=== PATIENT | male | born 1970 | race African-American/Black ===

== ENCOUNTER 2018-01-07 05:26 | Day surgery (SDC) | payer BC ==
[~2018-01-07] VITALS: Ht 175.3 cm; Wt 81.6 kg
--- NOTE | ~2018-01-07 | OP ---
PATIENT NAME: JYOTI BELLE MEDICAL RECORD: [id number] :72 LOCATION:[facility] ADMISSION DATE: SURGEON: MEHRDAD JONES MD DATE OF OPERATION: 01/07/2018 REFERRED BY: Dr. Aicha Mcintyre. PREOPERATIVE DIAGNOSIS: Chronic kidney disease, IV. POSTOPERATIVE DIAGNOSIS: Chronic kidney disease, IV. OPERATION PERFORMED: Creation of a left arm AV fistula, Thania type brachiocephalic. SURGEON: Mehrdad Jones MD ANESTHESIA: Regional block and MAC per BRIM FLEXER. PREOPERATIVE NOTE: This 47-year-old -Japanese male with chronic renal insufficiency is anticipated to require dialysis within the next year and is brought to the operating at this time for creation of a fistula in his left arm. DESCRIPTION OF PROCEDURE: Under anesthesia, the patient was prepped and draped in sterile manner and I examined him with Duplex ultrasound, first applying nitroglycerin ointment to the intact skin of the arm and forearm and using a Marta drain as a proximal venous tourniquet. The patient did not have a satisfactory cephalic vein at the wrist, but did have an excellent median cubital and cephalic vein at the antecubital space and in the upper arm. The basilic vein was large in the arm above the elbow and also in the forearm, although it would have required extensive mobilization for creation of a translocated basilic fistula in the forearm. I elected to go ahead with a brachiocephalic. A transverse antecubital incision was made and the median cubital vein dissected from the surrounding structures, treated with topical papaverine and ligated distally and flushed with heparinized saline and hydrostatically distended and dilated. It was shortened and beveled and kept occluded with an atraumatic vascular clamp proximally. I exposed the brachial artery and controlled it proximally and distally with Silastic loops and a few small branches were controlled temporarily with small Hemoclips. The artery was opened and flushed proximally and distally with heparinized saline and an end-to-side, end of vein to side of artery, anastomosis then performed with running 7-0 Prolene and when completed, the suture line was hemostatic and upon release of the loops, excellent flow was established in the new fistula. The patient had good maintenance of pulsatile flow in the brachial artery distal to the anastomosis, and in the radial artery at the wrist as well. The cephalic vein in the upper arm stood up and pulsated medially up to the shoulder. The patient's wound was irrigated with Ancef and gentamicin solution. A small amount of fibrillar hemostatic material was left on the anastomosis or actually just under it. The wound was closed with interrupted inverted 3-0 Vicryl and skin closure completed with running intracuticular 4-0 Monocryl and Dermabond glue. The incision was dressed with Maxorb Ag, Tegaderm, and Cavilon skin prep and the patient awakened and taken to the recovery room. OPERATIVE REPORT [id number] JYOTI BELLE He will be discharged to home today from the hospital and an appointment scheduled for him to see me in my office in about 2 weeks. He is to continue all of his same medications and diet and resume activities as tolerated. He may shower and wash over the waterproof plastic dressing as desired and I will plan to remove the dressing when he comes to see me in 2 weeks if it is not already come off. He is given a prescription for 10 tablets of hydrocodone 5 mg with acetaminophen 325 mg. He can take 1 tablet every 4 hours as needed p.r.n. for pain, no refills of course. TRANSINT:[id number] Voice Confirmation ID: [id number] DOCUMENT ID: [id number] MEHRDAD JONES MD at 2011 CC: AICHA MCINTYRE MD [id number] DICTATION DATE: 01/07/18 135 [employer] DIRECTIONAL SURVEYOR: 01/07/18 1419 [facility] 01/07/18 [id number] [place] [address]
[2018-01-07 06:07] LABS: INR 1.07 (0.85-1.17); PROTIME 13.5 SECONDS (11.6-15.0)
[2018-01-07 06:08] LABS: APTT 29.8 SECONDS (22.8-39.4)
[2018-01-07 06:11] LABS: BASOPHILS 0.5 % (0-2); EOSINOPHILS 7.5 % (0-7); HEMATOCRIT 29.6 % (42.0-54.0); HEMOGLOBIN 9.8 g/dL (13.5-17.5); IMMATURE GRANULOCYTES 0.2 % (0-5); LYMPHOCYTES 25.1 % (15-50); MCH 29.3 pg (26.0-34.0); MCHC 33.1 g/dL (31.0-37.0); MCV 88.4 fL (80.0-100.0); MEAN PLATELET VOLUME 9.9 fL (7.4-10.4); MONOCYTES 9.5 % (2-11); NEUTROPHILS 57.2 % (40-80); PLATELET COUNT 378 10x3/uL (130-400); RBC 3.35 10x6/uL (4.20-6.10); RDW 15.3 % (11.5-14.5); WBC 8.9 10x3/uL (4.8-10.8)
[2018-01-07 06:21] LABS: CALCIUM 8.7 mg/dL (8.5-10.1); CARBON DIOXIDE 26.2 mmol/L (21.0-32.0); CREATININE - SERUM 6.3 mg/dL (0.6-1.3); POTASSIUM - SERUM 3.2 mmol/L (3.5-5.1)
[2018-01-07] MEDS ORDERED: POT CHLORIDE TAB 8ME (08:28)
[2018-01-07] MEDS ORDERED: HYDRALAZINE HC100 MG PO (08:30)
[2018-01-07] MEDS ORDERED: NORMODYNE / TR200 MG PO (08:30)
[2018-01-07] MEDS ORDERED: ZYLOPRIM100 MG PO (08:31)
[2018-01-07] MEDS ORDERED: ATORVASTATIN TAB 10M (08:32)
[2018-01-07] MEDS ORDERED: PROAIR HFA8.5 GM INH (08:33)
[2018-01-07] MEDS ORDERED: CARDIZEM CD360 MG PO (08:33)
[2018-01-07 08:50] VITALS: Ht 175.3 cm; Wt 81.6 kg
[2018-01-07] MEDS ORDERED: HYDROCODON-ACE1 EAC7 PO (13:49)
== END 2018-01-07 15:30 | disposition home or self-care (01) ==
LOC: D.OPS 05:26 → D.PAN 08:00 → D.OPS 15:30
PROVIDERS: Surgery
DX: N18.4 Chronic kidney disease, stage 4 (severe) (principal); Z01.812 Encounter for preprocedural laboratory examination

== ENCOUNTER 2020-01-23 08:17 | Day surgery (SDC) | payer MEDICARE ==
[~2020-01-23] VITALS: Ht 175.3 cm; Wt 86.4 kg
--- NOTE | ~2020-01-23 | OP ---
PATIENT NAME: JYOTI HE MEDICAL RECORD: [id number] :71 LOCATION:[facility] ADMISSION DATE: SURGEON: MEHRDAD JONES MD DATE OF OPERATION: 01/23/2020 REFERRING PHYSICIAN: Aicha Mcintyre MD PREOPERATIVE DIAGNOSES: End-stage renal disease, dependence on hemodialysis and severely stenotic left brachiocephalic arteriovenous fistula with severe stricturing of the cephalic arch. POSTOPERATIVE DIAGNOSES: End-stage renal disease, dependence on hemodialysis and severely stenotic left brachiocephalic arteriovenous fistula with severe stricturing of the cephalic arch. OPERATION PERFORMED: Ultrasound-guided access and fistulogram, then angioplasty of the proximal cephalic vein and cephalic arch with an inadequate result followed then by insertion of an 8-mm diameter x 15 cm Viabahn stent in the cephalic arch. SURGEON: Mehrdad Jones MD ANESTHESIA: General with LMA per FLIGHT SURGEON. PREOPERATIVE NOTE: Mr. He is a 49-year-old -[place] male patient from [place] with end-stage renal disease, on chronic hemodialysis with a left brachiocephalic arteriovenous fistula. 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 He was referred to me with the thought or consideration that a flow reducing procedures such as a Johnson banding by lowering shear stress to prevent rapid recurrence of his proximal cephalic stenoses. The patient was brought to the operating room today with the intention of performing first a fistulogram and treating any significant proximal venous outflow obstruction and then an open Johnson banding to reduce flow in the fistula. DESCRIPTION OF PROCEDURE: Under general anesthesia with LMA per FLIGHT SURGEON, the patient in supine position was prepped and draped in sterile manner. 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 The arterial anastomosis was patent with a visible suture material and/or calcifications and no anastomotic stenosis apparently by ultrasound. I used ultrasound to identify the juxta-anastomotic fistula segment proximal to the arterial anastomosis, and with real time ultrasound guidance, cannulated the vein there with micropuncture technique. The vein at that point was fully compressible and contained no thrombus, was about 8-mm in diameter. Images were obtained in realtime and documented on paper, a printout to be included in the patient's permanent record. A 7-Omani introducer was inserted and a guidewire advanced proximally. It was difficult to advance the guidewire through the aneurysms as the course was so tortuous. I eventually used a glide catheter over a Roadrunner wire and went past the areas of most severe tortuosity, I replaced my 7-Omani sheath with an 8-Omani 25 cm long working sheath. Contrast injections revealed very slow flow in the fistula with outflow via at least one very large collateral and very poor OPERATIVE REPORT [id number] JYOTI HE flow in the proximal cephalic vein and apparent numerous stenoses or beading type of sclerotic process in the cephalic arch itself. I was able to pass the guidewire proximal and into the inferior vena cava and then I used an 8-mm angioplasty balloon to dilate the cephalic arch and proximal cephalic vein and it was necessary then to use additionally a Conquest 40 high pressure 8-mm diameter balloon to dilate the areas of the most severe stricturing. Repeat contrast injections revealed improvement, but still an extremely irregular cephalic arch and very unsatisfactory with more than 50% or 60-80% stenoses in multiple areas. I then stented the cephalic arch with an 8-mm diameter x 15 cm Viabahn stent, which was then fully deployed with the use of the 8-mm angioplasty balloon. Repeated contrast injections revealed much improved flow in the fistula and through the proximal cephalic vein with less collateral flow. The stent in the cephalic arch extends further into the subclavian vein, then I had attempted to keep it, but it does not at this time cause any significant obstruction and there was so much improved flow generally in all that area. The hardware and sheath were removed and hemostasis obtained at the puncture site with a [id number] 4-0 Prolene. A sterile dressing of Ultrafoam and Tegaderm with Cavilon skin prep was applied. At that point, the patient was awakened and taken to the recovery room. Blood loss during the operation was insignificant and unreplaced. Sponges, instruments, and needles were accounted for and no drain was used. We will contact the patient with instructions as to when to return. I do not think I need to see him back in the office necessarily, but I would like to see him back at [facility] within the next month. I do not think that a banding procedure would have been appropriate today because of the slow flow the patient had in his fistula, I think it was actually just about to thrombose. The fistula may require some additional stenting to maintain patency or its possible we will need to plan for an entirely new access fairly soon. TRANSINT:[id number] Voice Confirmation ID: [id number] DOCUMENT ID: [id number] cc: Dialysis in [place] MEHRDAD JONES MD CC: AICHA MCINTYRE MD and AICHA DEE MD [id number] DICTATION DATE: 01/23/20 1324 [employer] C[employer] HAND: 01/23/20 1845 [facility] 01/23/20 [facility] [address] [place] [address]
[~2020-01-23 08:17] MED LIST: ATORVASTATIN TAB 10M; CARDIZEM CD360 MG PO; HYDRALAZINE HC100 MG PO; HYDROCODON-ACE1 EAC7 PO; NORMODYNE / TR200 MG PO; POT CHLORIDE TAB 8ME; PROAIR HFA8.5 GM INH; ZYLOPRIM100 MG PO
[2020-01-23 08:56] LABS: ANION GAP 15.1 mmol/L (8-16); CALCIUM 8.7 mg/dL (8.5-10.1); CARBON DIOXIDE 28.3 mmol/L (21.0-32.0); CREATININE - SERUM 9.2 mg/dL (0.6-1.3); POTASSIUM - SERUM 4.4 mmol/L (3.5-5.1)
[2020-01-23] MEDS ORDERED: VERELAN360 MG PO (09:06)
[2020-01-23] MEDS ORDERED: FLOMAX0.4 MG PO (09:12)
[2020-01-23] MEDS ORDERED: FUROSEMIDE40 MG PO (09:13)
[2020-01-23] MEDS ORDERED: ROPINIROLE HCL0.5 MG PO (09:13)
[2020-01-23 09:18] VITALS: Ht 175.3 cm; Wt 86.4 kg
[2020-01-23 09:37] LABS: HEMATOCRIT 35.9 % (42.0-54.0); HEMOGLOBIN 11.5 g/dL (13.5-17.5); MCH 31.4 pg (26.0-34.0); MCV 98.1 fL (80.0-100.0); PLATELET COUNT 185 10x3/uL (130-400); RBC 3.66 10x6/uL (4.20-6.10); RDW 13.8 % (11.5-14.5); WBC 5.9 10x3/uL (4.8-10.8)
[2020-01-23 09:46] LABS: INR 1.1 (0.85-1.17); PROTIME 14.1 SECONDS (11.6-15.0)
[2020-01-23 14:04] LABS: ANISOCYTOSIS OCC; EOSINOPHILS 21 % (0-7); LYMPHOCYTES 14 % (15-50); MONOCYTES 13 % (2-11); NEUTROPHILS 52 % (40-80); PLATELET ESTIMATE NORMAL
--- NOTE | 2020-01-23 14:10 | NUR ---
RIGHT WRIST PIV DC'D WITH TIP INTACT. DISCHARGE INSTRUCTIONS REVIEWED WITH PATIENT. PATIENT DRESSING IN PERSONAL CLOTHING AND AMBULATING AROUND ROOM WITHOUT UNSTEADINESS OR DIZZINESS
== END 2020-01-23 14:16 | disposition home or self-care (01) ==
LOC: D.OPS 08:17
PROVIDERS: ATTEND Surgery
DX: N18.6 End stage renal disease (principal); Z99.2 Dependence on renal dialysis